=== PATIENT | male | born 1995 | race Caucasian/White ===

== ENCOUNTER 2018-04-30 15:43 | Emergency (ER) | payer BC, SELFPAY ==
[2018-04-30] MEDS ORDERED: FLUORESCEIN SODIUM 0.6 MG/WRAP ONE (16:19)
[2018-04-30] MEDS ORDERED: TETRACAINE HCL 0.5% 2ML OPTH ONE (16:19)
--- NOTE | 2018-04-30 16:26 | EDPHYS ---
Physician Documentation [facility] Name: Laron Hilton Jr Age: 22 yrs Sex: Male : 1995 Arrival Date: 04/30/2018 Time: 15:46 Bed 14 Private MD: Joy Millan ED Physician Rk Vaca HPI: 04/30 16:21 This 22 yrs old Male presents to ER via Ambulatory with complaints of Redness jr8 of Eye. 16:21 The patient is experiencing pain, redness. Onset: The symptoms/episode began/occurred jr8 acutely, today. Duration: the symptoms are continuous. Aggravated by light, Alleviated by nothing. Associated signs and symptoms: Pertinent positives: None. Patient does not utilize any form of vision correction. Severity of symptoms: At their worst the symptoms were mild in the emergency department the symptoms are unchanged. The patient has not experienced similar symptoms in the past. The patient has not recently seen a physician. Patient stated that after waking up washed his face with soap and water. Stated that about 5 minutes afterwards felt pain and burning to right eye. Historical: - Allergies: 15:55 No Known Allergies; aj - Home Meds: 15:55 None [Active]; aj - PMHx: 15:55 None; aj - PSHx: 15:55 None; aj - Immunization history:: Last tetanus immunization: unknown. - Social history:: Smoking status: Patient/guardian denies using tobacco. - Ebola Screening: : Patient negative for fever greater than or equal to 101.5 degrees Fahrenheit, and additional compatible Ebola Virus Disease symptoms Patient denies exposure to infectious person Patient denies travel to an Ebola-affected area in the 21 days before illness onset No symptoms or risks identified at this time. ROS: 16:21 ENT: Negative for injury, pain, and discharge, Neck: Negative for injury, pain, and jr8 swelling, Cardiovascular: Negative for chest pain, palpitations, and edema, Respiratory: Negative for shortness of breath, cough, wheezing, and pleuritic chest pain, Abdomen/GI: Negative for abdominal pain, nausea, vomiting, diarrhea, and constipation, Back: Negative for injury and pain, MS/Extremity: Negative for injury and deformity, Skin: Negative for injury, rash, and discoloration, Neuro: Negative for headache, weakness, numbness, tingling, and seizure. 16:21 Eyes: Positive for pain, photophobia, redness, tearing, of the right eye. Exam: 16:21 Visual Acuity: I have reviewed the nursing documentation. jr8 16:21 Head/Face: Normocephalic, atraumatic. ENT: Nares patent. No nasal discharge, no septal abnormalities noted. Tympanic membranes are normal and external auditory canals are clear. Oropharynx with no redness, swelling, or masses, exudates, or evidence of obstruction, uvula midline. Mucous membranes moist. Neck: Trachea midline, no thyromegaly or masses palpated, and no cervical lymphadenopathy. Supple, full range of motion without nuchal rigidity, or vertebral point tenderness. No Meningismus. Cardiovascular: Regular rate and rhythm with a normal S1 and S2. No gallops, murmurs, or rubs. Normal PMI, no JVD. No pulse deficits. Respiratory: Lungs have equal breath sounds bilaterally, clear to auscultation and percussion. No rales, rhonchi or wheezes noted. No increased work of breathing, no retractions or nasal flaring. Skin: Warm, dry with normal turgor. Normal color with no rashes, no lesions, and no evidence of cellulitis. MS/ Extremity: Pulses equal, no cyanosis. Neurovascular intact. Full, normal range of motion. Neuro: Awake and alert, GCS 15, oriented to person, place, time, and situation. Cranial nerves II-XII grossly intact. Motor strength 5/5 in all extremities. Sensory grossly intact. Cerebellar exam normal. Normal gait. 16:21 Eyes: Periorbital structures: appear normal, Pupils: equal, round, and reactive to light and accomodation, Extraocular movements: intact throughout, Conjunctiva: chemosis, that is moderate, in right eye, Corneas: are normal, no evidence of abrasion, no foreign body, a fluorescein strip employed to appreciate the findings, Sclera: no appreciated abnormality, Anterior chamber: normal, Lids and lashes: appear normal, Examination of the other eye reveals no obvious gross abnormality. Vital Signs: 15:55 BP 132 / 88; Pulse 80; Resp 17; Temp 97.7; Pulse Ox 98% on R/A; Weight 105.69 kg; aj Height 5 ft. 11 in. (180.34 cm); 15:55 Body Mass Index 32.50 (105.69 kg, 180.34 cm) Visual Acuity: 16:25 Left Eye Visual acuity 20/40, ; Right Eye Visual acuity 20/40, ; Both Eyes Visual jl7 acuity 20/40; Without Lenses; Procedures: 16:21 Eye Exam: Tetracaine. jr8 MDM: 15:59 Patient medically screened. jr8 16:21 Data reviewed: vital signs, nurses notes, and as a result, I will discharge patient. jr8 Data interpreted: Pulse oximetry: on room air is 98 %. Interpretation: normal. Counseling: I had a detailed discussion with the patient and/or guardian regarding: the historical points, exam findings, and any diagnostic results supporting the discharge/admit diagnosis, the need for outpatient follow up, an opthalmologist, to return to the emergency department if symptoms worsen or persist or if there are any questions or concerns that arise at home. Administered Medications: No medications were administered Disposition: 18:35 Co-signature as Attending Physician, Rk Vaca MD. rn Disposition: 04/30/18 16:25 Discharged to Home. Impression: Chemosis of Right eye, Conjunctivitis. - Condition is Stable. - Discharge Instructions: Chemical Conjunctivitis, Adult, Corneal Abrasion. - Prescriptions for Gentamicin 0.3 % (3 mg/gram) Ophthalmic Ointment - apply 0.5 inch by OPHTHALMIC route 2-3 times daily for 5 days; 3.5 gram. - Medication Reconciliation Form, Thank You Letter, Antibiotic Education, Prescription Opioid Use form. - Follow up: Julio Taylor MD; When: 2 - 3 days; Reason: Recheck today's complaints, Continuance of care, Re-evaluation by your physician. - Problem is new. - Symptoms have improved. Signatures: Kathrin Baker RN RN aj Nieto, Roman, MD MD rn Smirch, Shelby, RN RN ss Roszak, Josh, PA PA jr8 Corrections: (The following items were deleted from the chart) 16:26 16:25 04/30/2018 16:25 Discharged to Home. Impression: Chemosis of Right eye. Condition jr8 is Stable. Forms are Medication Reconciliation Form, Thank You Letter, Antibiotic Education, Prescription Opioid Use. Follow up: Julio Taylor; When: 2 - 3 days; Reason: Recheck today's complaints, Continuance of care, Re-evaluation by your physician. Problem is new. Symptoms have improved. jr8 16:34 16:26 04/30/2018 16:25 Discharged to Home. Impression: Chemosis of Right eye; ss Conjunctivitis. Condition is Stable. Discharge Instructions: Chemical Conjunctivitis, Adult, Corneal Abrasion. Forms are Medication Reconciliation Form, Thank You Letter, Antibiotic Education, Prescription Opioid Use. Follow up: Julio Taylor; When: 2 - 3 days; Reason: Recheck today's complaints, Continuance of care, Re-evaluation by your physician. Problem is new. Symptoms have improved. jr8
--- NOTE | 2018-04-30 16:26 | ER ---
Nurse's Notes [facility] Name: Laron Hilton Jr Age: 22 yrs Sex: Male : 1995 Arrival Date: 04/30/2018 Time: 15:46 Bed 14 Private MD: Joy Millan Diagnosis: Chemosis of Right eye;Conjunctivitis Presentation: 04/30 15:54 Presenting complaint: Patient states: Redness to right eye that started this AM after aj washing face. Transition of care: patient was not received from another setting of care. Onset of symptoms was April 30, 2018. Risk Assessment: Do you want to hurt yourself or someone else? Patient reports no desire to harm self or others. Initial Sepsis Screen: Does the patient meet any 2 criteria? No. Patient's initial sepsis screen is negative. Does the patient have a suspected source of infection? No. Patient's initial sepsis screen is negative. Care prior to arrival: None. 15:54 Method Of Arrival: Ambulatory aj 15:54 Acuity: KARUNA 2 aj Triage Assessment: 15:55 General: Appears in no apparent distress. comfortable, Behavior is calm, cooperative, aj appropriate for age. Pain: Complains of pain in right eye. EENT: Sclera/Cornea are reddened in outer aspect of conjuctiva of right eye, iris of right eye and inner aspect of conjuctiva of right eye Reports pain in right eye. Neuro: Level of Consciousness is awake, alert, obeys commands, Oriented to person, place, time, situation, Appropriate for age. Respiratory: Airway is patent Respiratory effort is even, unlabored, Respiratory pattern is regular, symmetrical. Derm: Skin is intact, is healthy with good turgor, Skin is pink, warm \T\ dry. normal. Historical: - Allergies: 15:55 No Known Allergies; aj - Home Meds: 15:55 None [Active]; aj - PMHx: 15:55 None; aj - PSHx: 15:55 None; aj - Immunization history:: Last tetanus immunization: unknown. - Social history:: Smoking status: Patient/guardian denies using tobacco. - Ebola Screening: : Patient negative for fever greater than or equal to 101.5 degrees Fahrenheit, and additional compatible Ebola Virus Disease symptoms Patient denies exposure to infectious person Patient denies travel to an Ebola-affected area in the 21 days before illness onset No symptoms or risks identified at this time. Screenin:00 Abuse screen: Denies threats or abuse. Denies injuries from another. Nutritional jl7 screening: No deficits noted. Tuberculosis screening: No symptoms or risk factors identified. Fall Risk None identified. Assessment: 16:00 General: Appears in no apparent distress. uncomfortable. Pain: Denies pain. Neuro: jl7 Level of Consciousness is awake, alert, obeys commands, Oriented to person, place, time, situation. Cardiovascular: Patient's skin is warm and dry. Respiratory: Airway is patent Respiratory effort is even, unlabored, Respiratory pattern is regular, symmetrical. EENT: Eyes are tearing on right eye Sclera/Cornea are reddened in right eye. Derm: Skin is pink, warm \T\ dry. Vital Signs: 15:55 BP 132 / 88; Pulse 80; Resp 17; Temp 97.7; Pulse Ox 98% on R/A; Weight 105.69 kg; aj Height 5 ft. 11 in. (180.34 cm); 15:55 Body Mass Index 32.50 (105.69 kg, 180.34 cm) aj Visual Acuity: 16:25 Left Eye Visual acuity 20/40, ; Right Eye Visual acuity 20/40, ; Both Eyes Visual jl7 acuity 20/40; Without Lenses; ED Course: 15:46 Patient arrived in ED. mr 15:47 Joy Millan MD is Private Physician. mr 15:54 Triage completed. aj 15:55 Arm band placed on left wrist. Patient placed in an exam room. aj 15:59 [facility]erson Park [facility] jr8 15:59 Rk Vaca MD is Attending Physician. jr8 16:00 Patient has correct armband on for positive identification. Bed in low position. Call 7 light in reach. Side rails up X 1. Pulse ox on. NIBP on. Warm blanket given. 16:02 Nai Mahan, YUSUF is Primary Nurse. jl7 16:25 Julio Taylor MD is Referral Physician. jr8 16:25 Assist provider with eye exam of right eye. using fluorescein stain, Performed by Gerson [facility] Patient tolerated well. 16:34 Patient did not have IV access during this emergency room visit. ss Administered Medications: No medications were administered Outcome: 16:25 Discharge ordered by MD. marquis 16:34 Discharged to home ambulatory. 16:34 Condition: good 16:34 Discharge instructions given to patient, family, Instructed on discharge instructions, follow up and referral plans. medication usage, Demonstrated understanding of instructions, follow-up care, medications, Prescriptions given X 1. 16:34 Patient left the ED. Signatures: Kathrin Baker RN RN aj Rivera, Mary mr Smirch, Shelby, RN RN Gerson Park PA PA jr8 Leal, Jahala, RN RN jl7
== END 2018-04-30 16:34 | disposition home or self-care (01) ==
LOC: ER 15:43
DX: H11.421 Conjunctival edema, right eye (principal)
CPT/HCPCS: 99283

== ENCOUNTER 2020-05-23 15:08 | Emergency (ER) | payer BC, SELFPAY ==
[2020-05-23] MEDS ORDERED: IBUPROFEN 400 MG TAB ONE (17:20)
--- NOTE | 2020-05-23 17:37 | EDPHYS ---
Physician Documentation [facility] Name: Laron Hilton Jr Age: 24 yrs Sex: Male : 1995 Arrival Date: 05/23/2020 Time: 15:11 Bed 27 Private MD: Joy Millan ED Physician David Rush HPI: 05/23 16:50 This 24 yrs old Male presents to ER via Wheelchair with complaints of Foot cp Pain. 16:50 The patient presents with pain, that is acute, swelling, tenderness. The complaints cp affect the dorsum of right foot. Context: resulted from an unknown cause, the patient can fully bear weight, the patient is able to ambulate, with mild difficulty. 16:50 Associated signs and symptoms: Pertinent negatives calf tenderness, fever, numbness. cp 16:50 Onset: The symptoms/episode began/occurred 6 day(s) ago. Treatment prior to arrival cp includes: no previous treatment. Historical: - Allergies: 15:44 No Known Allergies; ca1 - Home Meds: 15:44 None [Active]; ca1 - PMHx: 15:44 None; ca1 - PSHx: 15:44 None; ca1 - Immunization history:: Adult Immunizations up to date, Flu vaccine is up to date. - Social history:: Smoking status: Patient denies any tobacco usage or history of. ROS: 16:55 Constitutional: Negative for body aches, chills, fever. cp 16:55 Eyes: Negative for injury, pain, redness, and discharge. cp 16:55 Cardiovascular: Negative for chest pain, palpitations. 16:55 Respiratory: Negative for cough, shortness of breath. 16:55 MS/extremity: Positive for pain, swelling, tenderness, of the right foot. 16:55 All other systems are negative. Exam: 17:00 Constitutional: The patient appears in no acute distress, alert, awake, non-toxic, well cp developed, well nourished. 17:00 Head/Face: Normocephalic, atraumatic. cp 17:00 Chest/axilla: Inspection: normal. 17:00 Cardiovascular: Rate: tachycardic, Edema: is not appreciated. 17:00 Respiratory: the patient does not display signs of respiratory distress, Respirations: normal. 17:00 Musculoskeletal/extremity: Extremities: grossly normal except: noted in the dorsum of right foot: erythema, pain, swelling, tenderness, Pulses: noted to be 2+ in the right dorsalis pedis artery, Calf tenderness, is absent, of the right lower extremity. Vital Signs: 15:41 BP 126 / 65; Pulse 100; Resp 19 S; Temp 97.2(TE); Pulse Ox 99% on R/A; Weight 112.94 kg ca1 (R); Height 5 ft. 11 in. (180.34 cm) (R); Pain 4/10; 15:41 Body Mass Index 34.73 (112.94 kg, 180.34 cm) ca1 MDM: 16:40 Patient medically screened. maria del rosario 17:15 Differential diagnosis: closed fracture, contusion, cellulitis, abscess. cp 17:32 Test interpretation: by ED physician or midlevel provider: xrays of right foot negative cp for fracture. 17:34 ED course: review of [employer] prescription monitor website negative for active RXs for cp narcotic medications. 17:35 Data reviewed: vital signs, nurses notes, radiologic studies, plain films, and as a cp result, I will discharge patient. 17:35 Counseling: I had a detailed discussion with the patient and/or guardian regarding: the cp historical points, exam findings, and any diagnostic results supporting the discharge/admit diagnosis, radiology results, to return to the emergency department if symptoms worsen or persist or if there are any questions or concerns that arise at home. 17:35 Response to treatment: the patient's symptoms have mildly improved after treatment, and cp as a result, I will discharge patient. 05/23 16:46 Order name: XRAY Foot RIGHT 3 View cp Administered Medications: 17:11 Drug: Ibuprofen 800 mg Route: PO; aa5 18:29 Follow up: Response: No adverse reaction aa5 18:29 Drug: Hydrocodone-Acetaminophen (7.5 mg-325 mg) 1 tabs Route: PO; aa5 18:29 Follow up: Response: Medication administered at discharge. aa5 18:29 Drug: Doxycycline 200 mg Route: PO; aa5 18:29 Follow up: Response: Medication administered at discharge. aa5 18:29 Drug: Bactrim (160 mg-800 mg (DS) 1 tablet Route: PO; aa5 18:29 Follow up: Response: No adverse reaction; Medication administered at discharge. aa5 Disposition: 05/24 06:59 Co-signature as Attending Physician, David Rush MD I agree with the assessment and maria del rosario plan of care. Disposition: 05/23/20 17:35 Discharged to Home. Impression: Pain in right foot, Cellulitis of right lower limb - right foot. - Condition is Stable. - Discharge Instructions: Cellulitis, Adult, Foot Pain. - Prescriptions for Ibuprofen 800 mg Oral Tablet - take 1 tablet by ORAL route every 8 hours As needed take with food; 30 tablet. Tramadol 50 mg Oral Tablet - take 1 tablet by ORAL route every 8 hours as needed; 12 tablet. Clotrimazole 1 % Topical Cream - Apply to affected area 1 application by TOPICAL route every 12 hours for 7 days apply to web space of toes; 15 gram. Doxycycline Hyclate 100 mg Oral Tablet - take 1 tablet by ORAL route every 12 hours; 20 tablet. Bactrim DS 800- 160 mg Oral Tablet - take 1 tablet by ORAL route every 12 hours for 10 days; 20 tablet. - Work release form, Medication Reconciliation Form, Thank You Letter, Antibiotic Education, Prescription Opioid Use form. - Follow up: Private Physician; When: 5 - 6 days; Reason: Recheck today's complaints. - Problem is new. - Symptoms have improved. Signatures: Dispatcher [employer] EDMS David Rush MD MD cha Calderon, Audri, RN RN aa5 David Murphy PA PA cp Acob, Cheryl RN RN ca1 Corrections: (The following items were deleted from the chart) 05/23 18:13 17:35 05/23/2020 17:35 Discharged to Home. Impression: Pain in right foot. Condition is cp Stable. Forms are Medication Reconciliation Form, Thank You Letter, Antibiotic Education, Prescription Opioid Use. Follow up: Private Physician; When: 5 - 6 days; Reason: Recheck today's complaints. Problem is new. Symptoms have improved. cp 18:29 17:33 Crutches ordered. cp aa5 18:29 17:33 Walking boot ordered. cp aa5 18:30 18:13 05/23/2020 17:35 Discharged to Home. Impression: Pain in right foot; Cellulitis aa5 of right lower limb - right foot. Condition is Stable. Discharge Instructions: Foot Pain. Prescriptions for Ibuprofen 800 mg Oral Tablet - take 1 tablet by ORAL route every 8 hours As needed take with food; 30 tablet, Tramadol 50 mg Oral Tablet - take 1 tablet by ORAL route every 8 hours as needed; 12 tablet. and Forms are Medication Reconciliation Form, Thank You Letter, Antibiotic Education, Prescription Opioid Use. Follow up: Private Physician; When: 5 - 6 days; Reason: Recheck today's complaints. Problem is new. Symptoms have improved. cp
--- NOTE | 2020-05-23 17:37 | ER ---
Nurse's Notes [facility] Name: Laron Hilton Jr Age: 24 yrs Sex: Male : 1995 Arrival Date: 05/23/2020 Time: 15:11 Bed 27 Private MD: Joy Millan Diagnosis: Pain in right foot;Cellulitis of right lower limb-right foot Presentation: 05/23 15:41 Chief complaint: Patient states: R foot pain x 6 days, pain is worse with repositioning ca1 and weight bearing. Denies injury. Reports working on uneven surface last . Coronavirus screen: Client denies travel out of the [place] in the last 14 days. At this time, the client does not indicate any symptoms associated with coronavirus-19. The client reports previous COVID testing was negative. Date of collection: April 2020. Ebola Screen: Patient negative for fever greater than or equal to 101.5 degrees Fahrenheit, and additional compatible Ebola Virus Disease symptoms Patient denies exposure to infectious person. Patient denies travel to an Ebola-affected area in the 21 days before illness onset. No symptoms or risks identified at this time. Initial Sepsis Screen: Does the patient meet any 2 criteria? No. Patient's initial sepsis screen is negative. Does the patient have a suspected source of infection? No. Patient's initial sepsis screen is negative. Risk Assessment: Do you want to hurt yourself or someone else? Patient reports no desire to harm self or others. Onset of symptoms was May 23, 2020. 15:41 Method Of Arrival: Wheelchair ca1 15:41 Acuity: KARUNA 4 ca1 Historical: - Allergies: 15:44 No Known Allergies; ca1 - Home Meds: 15:44 None [Active]; ca1 - PMHx: 15:44 None; ca1 - PSHx: 15:44 None; ca1 - Immunization history:: Adult Immunizations up to date, Flu vaccine is up to date. - Social history:: Smoking status: Patient denies any tobacco usage or history of. Screenin:45 Abuse screen: Denies threats or abuse. Nutritional screening: No deficits noted. aa5 Tuberculosis screening: No symptoms or risk factors identified. Fall Risk None identified. Assessment: 16:45 General: Appears comfortable, Behavior is calm, cooperative. Pain: Complains of pain in aa5 anterior aspect of right ankle and dorsum of right foot. Neuro: Level of Consciousness is awake, alert, obeys commands, Oriented to person, place, time, situation. Cardiovascular: Capillary refill < 3 seconds in right toes. Respiratory: Airway is patent Respiratory effort is even, unlabored, Respiratory pattern is regular, symmetrical. GI: No signs and/or symptoms were reported involving the gastrointestinal system. : No signs and/or symptoms were reported regarding the genitourinary system. EENT: No signs and/or symptoms were reported regarding the EENT system. Derm: Skin is pink, warm \T\ dry. Redness noted to dorsum of right foot that it hot to the touch. Musculoskeletal: Swelling present in dorsum of right foot. 17:20 Reassessment: Patient is alert, oriented x 3, equal unlabored respirations, skin aa5 warm/dry/pink. X-ray at bedside . 18:29 Reassessment: Patient is alert, oriented x 3, equal unlabored respirations, skin aa5 warm/dry/pink. Vital Signs: 15:41 BP 126 / 65; Pulse 100; Resp 19 S; Temp 97.2(TE); Pulse Ox 99% on R/A; Weight 112.94 kg ca1 (R); Height 5 ft. 11 in. (180.34 cm) (R); Pain 4/10; 15:41 Body Mass Index 34.73 (112.94 kg, 180.34 cm) ca1 ED Course: 15:11 Patient arrived in ED. mr 15:11 Joy Millan MD is Private Physician. mr 15:44 Triage completed. ca1 15:44 Arm band placed on right wrist. ca1 16:40 David Rush MD is Attending Physician. maria del rosario 16:41 David Murphy PA is PHCP. cp 16:44 Sravani Nelson, YUSUF is Primary Nurse. aa5 16:45 Patient has correct armband on for positive identification. Bed in low position. Adult aa5 w/ patient. 17:30 XRAY Foot RIGHT 3 View In Process Unspecified. EDMS 18:29 No provider procedures requiring assistance completed. Patient did not have IV access aa5 during this emergency room visit. Administered Medications: 17:11 Drug: Ibuprofen 800 mg Route: PO; aa5 18:29 Follow up: Response: No adverse reaction aa5 18:29 Drug: Hydrocodone-Acetaminophen (7.5 mg-325 mg) 1 tabs Route: PO; aa5 18:29 Follow up: Response: Medication administered at discharge. aa5 18:29 Drug: Doxycycline 200 mg Route: PO; aa5 18:29 Follow up: Response: Medication administered at discharge. aa5 18:29 Drug: Bactrim (160 mg-800 mg (DS) 1 tablet Route: PO; aa5 18:29 Follow up: Response: No adverse reaction; Medication administered at discharge. aa5 Outcome: 17:35 Discharge ordered by . cp 18:29 Discharged to home via wheelchair, with significant other. aa5 18:29 Condition: stable 18:29 Discharge instructions given to patient, Instructed on discharge instructions, follow up and referral plans. medication usage, Demonstrated understanding of instructions, follow-up care, medications, Prescriptions given X 5 18:30 Patient left the ED. aa5 Signatures: Dispatcher [employer] EDMS David Rush MD MD cha Rivera, Mary mr NelsonSravani hannon RN RN aa5 David Murphy PA PA cp Acob, Cheryl RN RN ca1
--- NOTE | 2020-05-23 17:49 | RAD REPORT ---
EXAM DESCRIPTION: RAD - Foot Right 3 View - 05/23/2020 5:29 pm CLINICAL HISTORY: Right foot pain FINDINGS: No fracture or dislocation is seen. No bone or joint abnormality noted
[2020-05-23] MEDS ORDERED: HYDROCODONE/APAP 7.5/325 MG TAB ONE (18:28)
[2020-05-23] MEDS ORDERED: DOXYCYCLINE 100 MG CAP PO ONE (18:28)
[2020-05-23] MEDS ORDERED: SMZ./TMP. 800/160 MG TABLET ONE (18:28)
[2020-05-23 20:38] VITALS: BP 126/65; TEMP 97.2; O2SAT 99
== END 2020-05-23 18:30 | disposition home or self-care (01) ==
LOC: ER 15:08
DX: L03.115 Cellulitis of right lower limb (principal)
CPT/HCPCS: 99283

== ENCOUNTER 2020-05-27 18:17 | Inpatient (IN) | payer SELFPAY ==
[2020-05-27 20:02] LABS: Absolute Lymphocytes (CBC) 2.3 K/uL (0.7-4.9); Basophils % 0.6 % (0-1.3); Hematocrit 43.7 % (39.6-49.0); Lymphocytes % 16.8 % (15.3-44.8); MPV 7.8 fL (7.6-11.3)
[2020-05-27 20:06] LABS: Protime INR 1.16
--- NOTE | 2020-05-27 20:16 | RAD REPORT ---
EXAM DESCRIPTION: RAD - Ankle Right 3 View - 05/27/2020 7:59 pm CLINICAL HISTORY: Right ankle pain FINDINGS: No fracture or dislocation is seen. Soft tissue swelling. No bony destructive lesion
--- NOTE | 2020-05-27 20:18 | RAD REPORT ---
EXAM DESCRIPTION: RAD - Foot Right 3 View - 05/27/2020 7:59 pm CLINICAL HISTORY: Right foot pain FINDINGS: No fracture or dislocation is seen. Soft tissue swelling. No bony destructive lesion
[2020-05-27 20:19] LABS: Albumin 4.4 g/dL (3.4-5.0); Bilirubin Direct 0.2 mg/dL (0-0.2); Potassium 4.1 mmol/L (3.5-5.1); Protein, Total 9.2 g/dL (6.4-8.2)
[2020-05-27] MEDS ORDERED: ONDANSETRON 4 MG/2 ML VIAL ONE (20:26)
[2020-05-27] MEDS ORDERED: NA CHLORIDE 0.9% 1,000 ML ONE (20:26)
[2020-05-27] MEDS ORDERED: MORPHINE 4 MG/ML SYR ONE (20:26)
--- NOTE | 2020-05-27 20:43 | EDPHYS ---
Physician Documentation [facility] Name: Laron Hilton Jr Age: 24 yrs Sex: Male : 1995 Arrival Date: 05/27/2020 Time: 18:18 Bed 16 Private MD: Joy Millan ED Physician Kyler Post HPI: 05/27 19:23 This 24 yrs old Male presents to ER via Wheelchair with complaints of Foot mh7 Pain, Feet Swelling. 19:23 The patient presents with pain, that is acute, swelling. The complaints affect the mh7 right foot. Context: The problem was sustained at an unknown location, resulted from an unknown cause, Mechanism of Injury: Unknown the patient can fully bear weight, the patient is able to ambulate, without difficulty. Onset: The symptoms/episode began/occurred 10 day(s) ago. Modifying factors: The symptoms are alleviated by nothing, the symptoms are aggravated by nothing. Associated signs and symptoms: Pertinent positives: swelling, Pertinent negatives: calf tenderness, fever, nausea, numbness, rash, tingling, vomiting, warmth, weakness. Severity of symptoms: At their worst the symptoms were moderate, yesterday, in the emergency department the symptoms have improved, moderately. The patient has been recently seen at the [facility] Emergency Department, this week. 19:39 Patient reports swelling and redness to foot for 10 days. He was treated here four days mh7 ago and started on antibiotics. He states that the swelling and redness have increased over the past day. He denies any known injuries. Denies fever, nausea, vomiting.. Historical: - Allergies: 18:54 No Known Allergies; jd3 - Home Meds: 18:54 None [Active]; jd3 - PMHx: 18:54 None; jd3 - PSHx: 18:54 None; jd3 - Immunization history:: Adult Immunizations up to date. - Social history:: Smoking status: Patient denies any tobacco usage or history of. ROS: 19:23 Constitutional: Negative for fever, chills, and weight loss, Eyes: Negative for injury, mh7 pain, redness, and discharge, ENT: Negative for injury, pain, and discharge, Neck: Negative for injury, pain, and swelling, Cardiovascular: Negative for chest pain, palpitations, and edema, Respiratory: Negative for shortness of breath, cough, wheezing, and pleuritic chest pain, Abdomen/GI: Negative for abdominal pain, nausea, vomiting, diarrhea, and constipation, Back: Negative for injury and pain, : Negative for injury, bleeding, discharge, and swelling, Neuro: Negative for headache, weakness, numbness, tingling, and seizure, Psych: Negative for depression, anxiety, suicide ideation, homicidal ideation, and hallucinations, Allergy/Immunology: Negative for hives, rash, and allergies, Endocrine: Negative for neck swelling, polydipsia, polyuria, polyphagia, and marked weight changes, Hematologic/Lymphatic: Negative for swollen nodes, abnormal bleeding, and unusual bruising. Exam: 19:23 Constitutional: This is a well developed, well nourished patient who is awake, alert, mh7 and in no acute distress. Head/Face: Normocephalic, atraumatic. Eyes: Pupils equal round and reactive to light, extra-ocular motions intact. Lids and lashes normal. Conjunctiva and sclera are non-icteric and not injected. Cornea within normal limits. Periorbital areas with no swelling, redness, or edema. Neck: Trachea midline, no thyromegaly or masses palpated, and no cervical lymphadenopathy. Supple, full range of motion without nuchal rigidity, or vertebral point tenderness. No Meningismus. Chest/axilla: Normal chest wall appearance and motion. Nontender with no deformity. No lesions are appreciated. Cardiovascular: Regular rate and rhythm with a normal S1 and S2. No gallops, murmurs, or rubs. Normal PMI, no JVD. No pulse deficits. Respiratory: Lungs have equal breath sounds bilaterally, clear to auscultation and percussion. No rales, rhonchi or wheezes noted. No increased work of breathing, no retractions or nasal flaring. Abdomen/GI: Soft, non-tender, with normal bowel sounds. No distension or tympany. No guarding or rebound. No evidence of tenderness throughout. Back: No spinal tenderness. No costovertebral tenderness. Full range of motion. Neuro: Awake and alert, GCS 15, oriented to person, place, time, and situation. Cranial nerves II-XII grossly intact. Motor strength 5/5 in all extremities. Sensory grossly intact. Cerebellar exam normal. Normal gait. Psych: Awake, alert, with orientation to person, place and time. Behavior, mood, and affect are within normal limits. 19:23 Constitutional: The patient appears 19:23 Musculoskeletal/extremity: Extremities: noted in the dorsal right foot/anterior right ankle: erythema, pain, swelling, tenderness, ROM: intact in all extremities, Circulation is intact in all extremities. Pulses: are normal with no appreciated deficits, Perfusion: the patient is normally perfused throughout, Perfusion: the extremity is normally perfused throughout, Calf tenderness, is absent, Sensation intact. Compartment Syndrome exam of affected extremity: is normal. no numbness, no tingling, no sensation deficit, no palor, no weak pulses, Joints: All joints appear normal with full range of motion. Weight bearing: able to fully bear weight, without difficulty, Tendon exam: specific tendon testing normal through active and passive range of motion DVT Exam: negative Homans' sign noted on exam, no appreciated bluish discoloration, no increased warmth, Calves: are non-tender, have equal circumference. 19:23 Skin: cellulitis, that is moderate, irregular, on the right foot/anterior ankle. Vital Signs: 18:54 BP 115 / 83; Pulse 94; Resp 16 S; Temp 99.0(TE); Pulse Ox 100% on R/A; Weight 112.94 kg jd3 (R); Height 5 ft. 11 in. (180.34 cm) (R); Pain 8/10; 20:15 BP 123 / 84; Pulse 91; Resp 16 S; Pulse Ox 100% on R/A; ca1 21:10 BP 131 / 75; Pulse 89; Resp 16 S; Pulse Ox 100% on R/A; ca1 18:54 Body Mass Index 34.73 (112.94 kg, 180.34 cm) jd3 MDM: 19:16 Patient medically screened. [facility] 20:39 Differential diagnosis: fracture, sprain, penetrating trauma, cellulitis. Data [facility] reviewed: vital signs, nurses notes, old medical records, lab test result(s), CBC, electrolytes, radiologic studies, plain films, ultrasound. Data interpreted: Pulse oximetry: on room air is 100 %. Interpretation: normal. 20:40 Counseling: I had a detailed discussion with the patient and/or guardian regarding: the [facility] historical points, exam findings, and any diagnostic results supporting the discharge/admit diagnosis, lab results, radiology results, the need for further work-up and treatment in the hospital. Response to treatment: the patient's symptoms have mildly improved after treatment. 05/27 19:18 Order name: CBC with Diff [facility] 05/27 19:18 Order name: Basic Metabolic Panel [facility] 05/27 19:18 Order name: LFT's [facility] 05/27 19:18 Order name: Protime (+inr); Complete Time: 20:10 [facility] 05/27 19:18 Order name: Ptt, Activated; Complete Time: 20:10 [facility] 05/27 19:18 Order name: Blood Culture Adult (2) [facility] 05/27 19:18 Order name: Lactate; Complete Time: 20:38 [facility] 05/27 19:18 Order name: Foot Right 3 View XRAY; Complete Time: 20:38 [facility] 05/27 19:18 Order name: Ankle Right 3 View XRAY; Complete Time: 20:38 [facility] 05/27 19:18 Order name: CBC with Automated Diff; Complete Time: 20:10 [facility] 05/27 19:18 Order name: Basic Metabolic Panel; Complete Time: 20:38 [facility] 05/27 19:18 Order name: Liver (Hepatic) Function; Complete Time: 20:38 EDMS 05/27 19:38 Order name: US Extremity Venous Unilateral Ltd [facility] 05/27 20:35 Order name: Procalcitonin; Complete Time: 22:28 la1 05/27 19:36 Order name: Saline Lock; Complete Time: 19:55 [facility] 05/27 21:10 Order name: Incision \T\ Drainage Setup; Complete Time: 21:14 la1 Administered Medications: 20:18 Drug: NS 0.9% 1000 ml Route: IV; Rate: 1000 ml; Site: left antecubital; ca1 21:20 Follow up: Response: No adverse reaction; IV Status: Completed infusion; IV Intake: ca1 1000ml 20:58 Drug: vancoMYCIN 1 grams Route: IVPB; Infused Over: 2 hrs; Site: left antecubital; ca1 21:58 Follow up: Response: No adverse reaction; IV Status: Infusion continued upon admission ca1 21:45 Not Given (Patient Refused): morphine 4 mg IVP once; RASS on ADMIN: Combtv4, Very ca1 Agttd3, Agttd2, Rstlss1, AlertClm0, Drwsy-1, Lt Sdtn-2, Mod Sdtn-3, Dp Sdtn-4, UnArsble-5 21:45 Not Given (Patient Refused): Zofran (Ondansetron) 4 mg IVP once; over 2 minutes ca1 21:50 Not Given (Physician Discretion): Lidocaine (1 %) 5 mg Infiltration once ca1 Disposition: 05/27/20 20:42 Hospitalization ordered by Moise Vaca for Observation. Preliminary diagnosis is Cellulitis-Right lower Extremity, Failed Outpatient Treatment. - Bed requested for Telemetry/MedSurg (observation). - Status is Observation. jd3 - Condition is Stable. - Problem is an ongoing problem. - Symptoms have improved. Signatures: Dispatcher [employer] EDMS Henry Rodríguez, JONAH-C [employer]BER-Cla1 Mya Guerrier, RN RN cg Elliot Deras RN RN jd3 Laila Hutton RN RN ca1 Kyler Post MD MD 7 Corrections: (The following items were deleted from the chart) 21:26 20:42 Hospitalization Ordered by Moise Vaca MD for Observation. Preliminary cg diagnosis is Cellulitis-Right lower Extremity, Failed Outpatient Treatment. Bed requested for Telemetry/MedSurg (observation). Status is Observation. Condition is Stable. Problem is an ongoing problem. Symptoms have improved. [facility] 22:19 21:26 05/27/2020 20:42 Hospitalization Ordered by Moise Vaca MD for Observation. jd3 Preliminary diagnosis is Cellulitis-Right lower Extremity, Failed Outpatient Treatment. Bed requested for Telemetry/MedSurg (observation). Status is Observation. Condition is Stable. Problem is an ongoing problem. Symptoms have improved. cg
--- NOTE | 2020-05-27 20:43 | ER ---
Nurse's Notes [facility] Name: Laron Hilton Jr Age: 24 yrs Sex: Male : 1995 Arrival Date: 05/27/2020 Time: 18:18 Bed 16 Private MD: Joy Millan Diagnosis: Cellulitis-Right lower Extremity, Failed Outpatient Treatment Presentation: 05/27 18:52 Chief complaint: Patient states: "I was here a couple of weeks ago with a diagnosis of jd3 cellulitis. they said to come back if it got worse.". Coronavirus screen: At this time, the client does not indicate any symptoms associated with coronavirus-19. Ebola Screen: Patient negative for fever greater than or equal to 101.5 degrees Fahrenheit, and additional compatible Ebola Virus Disease symptoms. Initial Sepsis Screen: Does the patient meet any 2 criteria? No. Patient's initial sepsis screen is negative. Does the patient have a suspected source of infection? No. Patient's initial sepsis screen is negative. Risk Assessment: Do you want to hurt yourself or someone else? Patient reports no desire to harm self or others. Onset of symptoms was May 27, 2020. 18:52 Method Of Arrival: Wheelchair jd3 18:52 Acuity: KARUNA 3 jd3 Historical: - Allergies: 18:54 No Known Allergies; jd3 - Home Meds: 18:54 None [Active]; jd3 - PMHx: 18:54 None; jd3 - PSHx: 18:54 None; jd3 - Immunization history:: Adult Immunizations up to date. - Social history:: Smoking status: Patient denies any tobacco usage or history of. Screenin:15 Abuse screen: Denies threats or abuse. Denies injuries from another. Nutritional ca1 screening: No deficits noted. Tuberculosis screening: No symptoms or risk factors identified. Fall Risk IV access (20 points). Assessment: 19:15 General: Appears in no apparent distress. comfortable, Behavior is calm, cooperative, ca1 appropriate for age. Pain: Complains of pain in anterior aspect of right ankle and dorsum of right foot Pain currently is 2 out of 10 on a pain scale. Pain began 2-3 days ago. Neuro: Level of Consciousness is awake, alert, obeys commands, Oriented to person, place, time, situation. Cardiovascular: Heart tones S1 S2 present Capillary refill < 3 seconds Patient's skin is warm and dry. Respiratory: Airway is patent Respiratory effort is even, unlabored, Respiratory pattern is regular, symmetrical, Breath sounds are clear bilaterally. GI: Abdomen is flat, Bowel sounds present X 4 quads. Abd is soft and non tender X 4 quads. : No signs and/or symptoms were reported regarding the genitourinary system. EENT: No signs and/or symptoms were reported regarding the EENT system. Derm: Skin is intact, is healthy with good turgor, Skin is pink, warm \\T\\ dry. Rash noted that is red, raised, on anterior aspect of right ankle and dorsum of right foot. Musculoskeletal: Circulation, motion, and sensation intact. Capillary refill < 3 seconds, Swelling present in anterior aspect of right ankle. 20:15 Reassessment: Patient appears in no apparent distress at this time. Patient and/or ca1 family updated on plan of care and expected duration. Pain level reassessed. Patient is alert, oriented x 3, equal unlabored respirations, skin warm/dry/pink. 21:10 Reassessment: Patient appears in no apparent distress at this time. Patient and/or ca1 family updated on plan of care and expected duration. Pain level reassessed. Patient is alert, oriented x 3, equal unlabored respirations, skin warm/dry/pink. 21:17 Reassessment: PT TO US AT THIS TIME. ca1 21:45 Reassessment: Patient appears in no apparent distress at this time. Patient and/or ca1 family updated on plan of care and expected duration. Pain level reassessed. Patient is alert, oriented x 3, equal unlabored respirations, skin warm/dry/pink. Reassessment: Called for report. Nurse will call back. Vital Signs: 18:54 BP 115 / 83; Pulse 94; Resp 16 S; Temp 99.0(TE); Pulse Ox 100% on R/A; Weight 112.94 kg jd3 (R); Height 5 ft. 11 in. (180.34 cm) (R); Pain 8/10; 20:15 BP 123 / 84; Pulse 91; Resp 16 S; Pulse Ox 100% on R/A; ca1 21:10 BP 131 / 75; Pulse 89; Resp 16 S; Pulse Ox 100% on R/A; ca1 18:54 Body Mass Index 34.73 (112.94 kg, 180.34 cm) jd3 ED Course: 18:18 Patient arrived in ED. ag5 18:19 Joy Millan MD is Private Physician. ag5 18:53 Triage completed. jd3 18:56 Arm band placed on. jd3 19:04 Kyler Post MD is Attending Physician. mh7 19:15 Patient has correct armband on for positive identification. Bed in low position. Call ca1 light in reach. Pulse ox on. NIBP on. Warm blanket given. 19:51 Inserted saline lock: 20 gauge in left antecubital area, using aseptic technique. Blood ca1 collected. 19:51 Initial lab(s) drawn, by me, sent to lab. First set of blood cultures drawn by me. ca1 19:54 Laila Hutton, RN is Primary Nurse. ca1 20:00 Foot Right 3 View XRAY In Process Unspecified. EDMS 20:00 Ankle Right 3 View XRAY In Process Unspecified. EDMS 20:15 No provider procedures requiring assistance completed. ca1 20:39 Second set of blood cultures drawn by me. ca1 20:40 Moise Vaca MD is Hospitalizing Provider. mh7 21:57 Patient admitted, IV remains in place. ca1 Administered Medications: 20:18 Drug: NS 0.9% 1000 ml Route: IV; Rate: 1000 ml; Site: left antecubital; ca1 21:20 Follow up: Response: No adverse reaction; IV Status: Completed infusion; IV Intake: ca1 1000ml 20:58 Drug: vancoMYCIN 1 grams Route: IVPB; Infused Over: 2 hrs; Site: left antecubital; ca1 21:58 Follow up: Response: No adverse reaction; IV Status: Infusion continued upon admission ca1 21:45 Not Given (Patient Refused): morphine 4 mg IVP once; RASS on ADMIN: Combtv4, Very ca1 Agttd3, Agttd2, Rstlss1, AlertClm0, Drwsy-1, Lt Sdtn-2, Mod Sdtn-3, Dp Sdtn-4, UnArsble-5 21:45 Not Given (Patient Refused): Zofran (Ondansetron) 4 mg IVP once; over 2 minutes ca1 21:50 Not Given (Physician Discretion): Lidocaine (1 %) 5 mg Infiltration once ca1 Intake: 21:20 IV: 1000ml; Total: 1000ml. ca1 Outcome: 20:42 Decision to Hospitalize by Provider. zach 21:57 Admitted to Med/surg accompanied by tech, via stretcher, room 225, with chart, Report ca1 called to YUSUF Duarte 21:57 Condition: stable 21:57 Instructed on the need for admit. 22:19 Patient left the ED. magdalena Signatures: Dispatcher [employer] Elliot Loja RN RN jd3 Acob, Cheryl, RN RN ca1 Jessica Pitts 5 Kyler Post MD MD 7 Corrections: (The following items were deleted from the chart) 18:57 18:54 Pulse 94bpm; Resp 16bpm; Spontaneous; Pulse Ox 100% RA; Temp 99.0F Temporal; jd3 112.94 kg Reported; Height 5 ft. 11 in. Reported; BMI: 34.7; Pain 8/10; jd3
[2020-05-27] MEDS ORDERED: VANCOMYCIN 1 GM/VIAL ONE (21:06)
[2020-05-27] MEDS ORDERED: NA CHLORIDE 0.9% 250 ML ONE (21:06)
[2020-05-27] MEDS ORDERED: LIDOCAINE 1% MPF 5 ML VIAL ONE (21:30)
[2020-05-27] MEDS ORDERED: HYDROCODONE/APAP 7.5/325 MG TAB PO PRN (22:24)
[2020-05-27] MEDS ORDERED: ONDANSETRON 4 MG/2 ML VIAL IV PRN (22:24)
[2020-05-27] MEDS ORDERED: ACETAMINOPHEN 500 MG TAB PO PRN (22:24)
--- NOTE | 2020-05-27 22:29 | RAD REPORT ---
EXAM DESCRIPTION: USExtremity Venous Uni Ltd05/27/2020 9:51 pm CLINICAL HISTORY: Right leg pain and swelling. COMPARISON: None. FINDINGS: Right common femoral, superficial femoral, popliteal and right posterior tibial veins are compressible and demonstrate augmentation. Doppler demonstrates good flow. 1.5 centimeter fluid collection anterior right foot IMPRESSION: No evidence of deep venous thrombosis involving the right lower extremity. 1.5 centimeter fluid collection anterior right foot may represent a small abscess
--- NOTE | 2020-05-27 22:35 | P.HP ---
Certification for Inpatient Patient admitted to: Inpatient With expected LOS: >2 Midnights Patient will require the following post-hospital care: None Practitioner: I am a practitioner with admitting privileges, knowledge of patient current condition, hospital course, and medical plan of care. Services: Services provided to patient in accordance with Admission requirements found in Title 42 Section 412.3 of the Code of Federal Regulations <Henry Rodríguez - Last Filed: 05/27/20 22:30> Patient History Date of Service: 05/27/20 Reason for admission: Cellulitis History of Present Illness: 24-year-old male with no significant past medical history presents emergency department for cellulitis. Patient reports that 4-5 days ago he was prescribed Bactrim and doxycycline for cellulitis left lower extremity, patient reports that there was some mild improvement but now it is getting worse. Patient's workup in the emergency department revealed white blood cell count 13.5 pro calcitonin less than 0.05, lactate 0.7, x-ray without any acute findings. Patient is DVT of the left lower extremity which ruled out DVT. Patient reports that he does wears steel-toed boots for work but feels that they fit well. On exam 4 cm abscess noted to the anterior ankle area just proximal to the foot. ED provider wishes to admit patient for further evaluation and management. When I saw the patient in the emergency department is awake, alert, orient x3. Patient does not appear septic at this time, will be admitted for further e valuation and management - Past Medical/Surgical History -: none -: none Psychosocial/ Personal History: Patient lives with his family - Family History Mother -: Heart disease, Diabetes Father -: Heart disease - Social History Smoking Status: Never smoker Alcohol use: Yes CD- Drugs: No Caffeine use: Yes Place of Residence: Home <Henry Rodríguez - Last Filed: 05/27/20 22:30> Date of Service: 05/30/20 <Moise Vaca - Last Filed: 05/30/20 14:33> Allergies No Known Allergies Allergy (Verified 05/27/20 22:37) Review of Systems 10-point ROS is otherwise unremarkable Integumentary: As per HPI <Henry Rodríguez - Last Filed: 05/27/20 22:30> Physical Examination - Physical Exam General: Alert, In no apparent distress HEENT: Atraumatic, PERRLA, Mucous membr. moist/pink Neck: Supple, 2+ carotid pulse no bruit, No LAD Respiratory: Clear to auscultation bilaterally, Normal air movement Cardiovascular: Regular rate/rhythm, Normal S1 S2 Gastrointestinal: Normal bowel sounds, No tenderness Musculoskeletal: No tenderness Integumentary: Tenderness/swelling, Erythema, Warmth, Other (cellulitis and abscess noted to LLE) Neurological: Normal gait, Normal speech, Normal strength at 5/5 x4 extr, Normal tone, Normal affect - Studies Laboratory Data (last 24 hrs) 05/27/20 19:51: PT 13.6 H, INR 1.16, APTT 31.0 05/27/20 19:51: Sodium 138, Potassium 4.1, BUN 11, Creatinine 1.10, Glucose 74, Total Bilirubin 1.0, AST 24, ALT 62, Alkaline Phosphatase 80 05/27/20 19:51: WBC 13.5 H, Hgb 15.0, Hct 43.7, Plt Count 299 <Henry Rodríguez - Last Filed: 05/27/20 22:30> Assessment and Plan - Plan Assessment Cellulitis and abscess of left lower extremity-failed outpatient therapy Plan Cellulitis and abscess of left lower extremity-failed outpatient therapy: Patient was on 4 days of p.o. Bactrim and doxycycline which was compliant with, cellulitis has worsened. Continue IV antibiotics at this time, case was discussed with General Surgery who will see patient in the morning. NPO after midnight. P.r.n. pain medications. A1c with morning labs. Discharge Plan: Home Plan to discharge in: 48 Hours - Advance Directives Does patient have a Living Will: No Does patient have a Durable POA for Healthcare: No - Code Status/Comfort Care Code Status Assessed: Yes (full code) Critical Care: No Time Spent Managing Pts Care (In Minutes): 55 <Henry Rodríguez - Last Filed: 05/27/20 22:30> - Plan Plan of care reviewed with Henry Rodríguez. Agree with plan as noted above. <Moise Vaca - Last Filed: 05/30/20 14:33>
[2020-05-27 22:42] VITALS: BMI 34.0
[2020-05-27] MEDS: NA CHLORIDE 0.9% 1,000 ML IV SCH (23:11)
[2020-05-28 05:17] LABS: Absolute Lymphocytes (CBC) 2.2 K/uL (0.7-4.9); Basophils % 1.1 % (0-1.3); Hematocrit 35.4 % (39.6-49.0); Lymphocytes % 22.6 % (15.3-44.8); MPV 7.8 fL (7.6-11.3); RBC Red Blood Cell Count 4.35 M/uL (4.33-5.43)
[2020-05-28 05:26] LABS: BUN Blood Urea Nitrogen 13 mg/dL (7-18); Bicarbonate 25 mmol/L (21-32); Glucose Level 89 mg/dL (74-106); Sodium Level 139 mmol/L (136-145)
[2020-05-28] MEDS ORDERED: Ringers Lactate 1,000 ML IV ONE (08:52)
[2020-05-28] MEDS ORDERED: ENOXAPARIN 40 MG/0.4 ML SQ SCH (09:00)
[2020-05-28] MEDS: VANCOMYCIN 2 GM in NA CHLORIDE 0.9% 500 ML IVPB SCH ×2 (09:00→21:56)
[2020-05-28] MEDS ORDERED: VANCOMYCIN/NS 1 gm 1 GM/250 ML BAG IVPB SCH (09:00)
[2020-05-28] MEDS ORDERED: LIDOCAINE 2% MPF 5 ML VIAL ONE (09:08)
[2020-05-28] MEDS ORDERED: propofoL 200 MG/20 ML VIAL IV ONE (09:08)
--- NOTE | 2020-05-28 09:09 | PREOPCON ---
Date of Consultation: 05/28/2020 Reason For Consultation: Infection, right leg. History Of Present Illness: The patient is a 24-year-old gentleman, who fell about the last week dev eloping cellulitis, came to the ER last week, was put on oral antibiotics; however, he did not improv e and there was redness and swelling, got worse. Came back to the ER and was diagnosed with an absce ss. He was admitted for IV antibiotics. I was consulted. He is awake, alert, no fever or chills. No groin lymphadenopathy. He does work around sea water. No sore throat, runny nose, cough, headach es, or dizziness. No drainage. No fever or chills. Review of Systems: Otherwise unremarkable. Past Medical History: Negative. Past Surgical History: Negative. Allergies: NO ALLERGIES. Social History: Does smoke occasionally and drink occasionally. Family History: Significant for heart disease. Physical Examination: Vital Signs: Stable. He is afebrile. General: He is awake, alert, and oriented x3. Head and Neck: Cranial nerves 2 through 12 are gross within normal limits. No neck masses. No JVD. Throat clear. Neck is supple. Chest: Clear. Heart: S1 and S2. Abdomen: Soft. Extremities: Neurovascularly intact. Neuro: Nonfocal. On the right lower leg just above the ankle anteriorly, there was approximately a 4 x 6 cm area of erythema, warmth, edema with central induration and fluctuance and with what appears to be a pustule about the leg. Warm, tender. Laboratory Data: White count was elevated, it is back down to normal. Electrolytes reviewed. Ultra sound and Doppler reviewed. Assessment: A 24-year-old gentleman with abscess and cellulitis, right leg. Plan: Admit, n.p.o., IV fluid, IV antibiotic, to the OR for incision and drainage and debridement of right leg abscess. The patient understands the risks, benefits, and alternatives and agrees to the procedure. /MODL Voice ID: [id number] Report ID: [id number]
[2020-05-28] MEDS ORDERED: FENTANYL CITR 100 MCG/2 ML ONE (09:11)
[2020-05-28] MEDS ORDERED: KETOROLAC 30 MG/ML INJ ONE (09:18)
[2020-05-28] MEDS ORDERED: dexAMETHasone 10 MG/ML VIAL ONE (09:18)
[2020-05-28] MEDS ORDERED: ONDANSETRON 4 MG/2 ML VIAL ONE (09:18)
[2020-05-28 09:34] VITALS: O2SAT 100
--- NOTE | 2020-05-28 09:36 | P.OP ---
[employer] Consultant: NONE,NONE Preoperative diagnosis: Abcess and cellulitis right leg Postoperative diagnosis: same Primary procedure: I and D and Debridement Right Leg Abscess Anesthesia: General Estimated blood loss: min Specimen: pus Findings: as above Complications: None Transferred to: Recovery Room Condition: Good
[2020-05-28] MEDS: HYDROMORPHONE HCL 1 MG/ML INJ ONE ×2 (09:43→09:53)
[2020-05-28] MEDS ORDERED: CHLORHEXIDINE GLUCO 4% 120 ML TOP SCH (10:00)
[2020-05-28] MEDS: SODIUM HYPOCHLORITE 0.25% 473 ML TOP SCH (10:29)
[2020-05-28] MEDS: NA CHLORIDE 0.9% 1,000 ML IV SCH ×3 (10:31→21:59)
--- NOTE | 2020-05-28 11:40 | OP ---
Date of Procedure: 05/28/2020 Surgeon: Akil Dee MD Aviation Operations Specialist: None. Preoperative Diagnosis: Abscess, cellulitis of right leg. Postoperative Diagnosis: Abscess, cellulitis of right leg. Procedure: Incision, drainage and debridement of right leg abscess. Estimated Blood Loss: Minimal. Specimens: Pus. Findings: As above. Anesthesia: General. Complications: None. Disposition: The patient tolerated the procedure in stable condition, taken to Recovery in good gene ral condition. Procedure In Detail: The patient was brought to the OR and placed in supine position. General anest hesia was begun. The patient was prepped and draped in the usual sterile fashion. Marcaine 0.5% was infiltrated locally. A 15-blade was used to make approximately a 3 cm incision transverse in nature in the lower leg anteriorly. Subcutaneous tissues were divided. Pus evacuated. It was dark in col or consistent with likely MRSA infection. Cultures were done. Loculation broken up. Necrotic tissu e debrided. Wound irrigated. Bleeding controlled with cautery. Wet-to-dry normal saline dressing change applied. The patient tolerated the procedure in stable condition, taken to Recovery in good g eneral condition. /MODL Voice ID: [id number] Report ID: [id number]
--- NOTE | 2020-05-28 15:35 | P.PN ---
Subjective Date of Service: 05/28/20 Chief Complaint: Cellulitis Subjective: Improving (Feels left foot/ankle swelling has improved, still remains with some erythema and tenderness) Review of Systems 10-point ROS is otherwise unremarkable Physical Examination - Vital Signs Temperature: 97.6 F Blood Pressure: 115/65 Pulse: 76 Respirations: 20 Pulse Ox (%): 98 - Physical Exam General: Alert, In no apparent distress HEENT: Sclerae nonicteric Respiratory: Clear to auscultation bilaterally, Normal air movement Cardiovascular: Regular rate/rhythm, Edema (2+ L foot) Gastrointestinal: Soft and benign, Non-distended Integumentary: Erythema (Dorsum of left foot, anterior lower tibia, tenderness, palpable abscess) Neurological: Normal speech, Normal affect - Studies Laboratory Data (last 24 hrs) 05/27/20 19:51: PT 13.6 H, INR 1.16, APTT 31.0 05/27/20 19:51: Sodium 138, Potassium 4.1, BUN 11, Creatinine 1.10, Glucose 74, Total Bilirubin 1.0, AST 24, ALT 62, Alkaline Phosphatase 80 05/27/20 19:51: WBC 13.5 H, Hgb 15.0, Hct 43.7, Plt Count 299 Assessment & Plan Physician Review Additional Text: Cellulitis and abscess of left lower extremity-failed outpatient therapy Failed/Worsened on Bactrim and doxycycline. Continue IV vancomycin General surgery consulted, patient to the OR today for I&D PRN pain medication ADAT after surgery Hemoglobin A1c: 5.4 Anticipate Dc home in the next 24-48hrs Time Spent Managing Pts Care (In Minutes): 35
[2020-05-28] MEDS: MUPIROCIN 2% OINT 22GM TUBE TOP SCH (21:57)
[2020-05-28] MEDS ORDERED: MELATONIN 5 MG TABLET PO ONE (22:30)
[2020-05-29 04:27] LABS: Absolute Lymphocytes (CBC) 1.2 K/uL (0.7-4.9); Basophils % 0.1 % (0-1.3); Hematocrit 36.8 % (39.6-49.0); Lymphocytes % 9.6 % (15.3-44.8); RBC Red Blood Cell Count 4.54 M/uL (4.33-5.43)
[2020-05-29 04:32] LABS: BUN Blood Urea Nitrogen 8 mg/dL (7-18); Bicarbonate 25 mmol/L (21-32); Glucose Level 111 mg/dL (74-106); Sodium Level 142 mmol/L (136-145)
[2020-05-29] MEDS: NA CHLORIDE 0.9% 1,000 ML IV SCH (06:53)
[2020-05-29] MEDS: MUPIROCIN 2% OINT 22GM TUBE TOP SCH (09:00)
[2020-05-29] MEDS: VANCOMYCIN 2 GM in NA CHLORIDE 0.9% 500 ML IVPB SCH (09:06)
[2020-05-29] MEDS: SODIUM HYPOCHLORITE 0.25% 473 ML TOP SCH (13:30)
--- NOTE | 2020-05-29 14:03 | P.DS ---
Admission Date: 05/27/20 Discharge Date: 05/29/20 Disposition: ROUTINE DISCHARGE Discharge Condition: GOOD Reason for Admission: Cellulitis complicated by Abscess Consultations: General Surgery - Dr. Dee Procedures: Foot x-ray (05/27): No fracture or dislocation is seen. Soft tissue swelling. No bony destructive lesion Ankle x-ray (05/27): No fracture or dislocation is seen. Soft tissue swelling. No bony destructive lesion Venous U/S (05/27): No evidence of deep venous thrombosis involving the right lower extremity. 1.5 centimeter fluid collection anterior right foot may represent a small abscess I&D (05/28) by Dr. Dee: 3cm incision transverse of anterior lower left leg with dark purulent fluid evacuated and necrotic tissue debrided. Cultures obtained at time of surgery - results were not back at time of discharge, but will be followed up by Dr. Dee. Wound care: wet-to-dry dressing with normal saline. Problem List: Cellulitis and abscess of left lower extremity-failed outpatient therapy Brief History of Present Illness: 24yo male, no significant PMH presented to ED due to R lower extremity cellulitis worsening despite ~3 days of antibiotics (bactrim & doxycycline). He initially had improvement, then worsened with swelling and increased pain. He was admitted for IV antibiotics and I&D of his abscess. Hospital Course: Patient underwent I&D by general surgery (Dr. Dee) without complication. His pain and swelling significantly improved and he was discharged home to continue his prescribed bactrim & doxycycline (~7days remaining). He will follow up with Dr. Dee in 2 weeks. He was instructed on how to perform his dressing changes at home (wet to dry with normal saline). Vital Signs/Physical Exam: Temp Pulse Resp BP Pulse Ox 97.8 F 110 H 17 118/51 L 97 05/29/20 12:00 05/29/20 12:00 05/29/20 12:00 05/29/20 12:00 05/29/20 12:00 General: Alert, In no apparent distress Respiratory: Clear to auscultation bilaterally Cardiovascular: Regular rate/rhythm Gastrointestinal: Soft and benign, No tenderness Integumentary: Other (R lower extremity just above ankle anteriorly: ~3cm transverse incision, mild erythema surrounding, no purulent drainage, no bleeding. R foot with 1+edema) Neurological: Normal speech, Normal affect Laboratory Data at Discharge: WBC 12.3 K/uL (4.3-10.9) H D 05/29/20 03:41 Hgb 12.8 g/dL (13.6-17.9) L 05/29/20 03:41 Hct 36.8 % (39.6-49.0) L 05/29/20 03:41 Plt Count 295 K/uL (152-406) 05/29/20 03:41 PT 13.6 SECONDS (9.5-12.5) H 05/27/20 19:51 INR 1.16 05/27/20 19:51 APTT 31.0 SECONDS (24.3-36.9) 05/27/20 19:51 Sodium 142 mmol/L (136-145) 05/29/20 03:41 Potassium 4.0 mmol/L (3.5-5.1) 05/29/20 03:41 BUN 8 mg/dL (7-18) 05/29/20 03:41 Creatinine 0.76 mg/dL (0.55-1.3) 05/29/20 03:41 Glucose 111 mg/dL (74-106) H 05/29/20 03:41 Total Bilirubin 1.0 mg/dL (0.2-1.0) 05/27/20 19:51 AST 24 U/L (15-37) 05/27/20 19:51 ALT 62 U/L (12-78) 05/27/20 19:51 Alkaline Phosphatase 80 U/L (45-117) 05/27/20 19:51 Home Medications: NK [No Home Meds] 05/27/20 Patient Discharge Instructions: Ok to return to work next Friday with light duty. Elevate R foot as often as possible. Continue antibiotics and pain medication as prescribed prior to admission. Continue wet to dry dressings. Follow up with Dr. Dee in 2 weeks. Diet: Regular Activity: Ad ivan Followup: Akil Dee MD [ACTIVE - CAN ADMIT] - Joy Millan DO [Primary Care Provider] - Time spent managing pt's care (in minutes): 35
[2020-05-29 17:26] VITALS: BP 152/76; TEMP 98.3
--- NOTE | 2020-05-29 19:19 | PN ---
Date of Progress Note: 05/29/2020 Subjective: Patient is awake, alert. No complaints. Objective: Vitals: Stable, afebrile. Skin: Wound was examined by Dr. Vaca; was clean, dry, intact. Redness was gone. Assessment: Status post incision and drainage of right foot abscess. Recommendation: Cleared for discharged on oral antibiotics. We will check cultures, adjust antibiot ics accordingly, dressings as ordered, and follow up in my office in 2 weeks. FIONA/TEODORA Voice ID: [id number] Report ID: [id number]
[2020-05-29] MEDS ORDERED: VANCOMYCIN 1.5 GM in NA CHLORIDE 0.9% 500 ML IVPB SCH (21:00)
== END 2020-05-29 15:42 | disposition home or self-care (01) | DRG 572 ==
LOC: ER 18:17 → ERHOLD 21:14 → 2ND 21:57
PROVIDERS: ADMIT Hospitalist; ATTEND Hospitalist
PROC: 0JBN0ZZ Excision of Right Lower Leg Subcutaneous Tissue and Fascia, Open Approach (ICD-10-PCS; principal; 2020-05-28 09:00)
DX: L03.115 Cellulitis of right lower limb (principal); L02.415 Cutaneous abscess of right lower limb; Z20.828 Contact with and (suspected) exposure to other viral communicable diseases
CPT/HCPCS: 36415; 80048; 80076; 80202; 83036; 83605; 84145; 85025; 85610; 85730; 87040; 87070; 87075; 87077; 87186; 87205; 93971; 96361; 96365; 99285; J1100; J1170; J2405; J2704; J3010; J3370; J7030; J7040; J7050; J7120; U0003